=== PATIENT | male | born 1980 | race Caucasian/White ===

== ENCOUNTER 2017-08-27 08:08 | Emergency (ER) | payer OTHER ==
[~2017-08-27] VITALS: Ht 177.8 cm; Wt 129.5 kg
[2017-08-27] MEDS ORDERED: FLEXERIL10 MG PO ×2 (10:38→11:37)
[2017-08-27] MEDS ORDERED: TYLENOL WITH C1 EACH PO ×2 (10:38→11:37)
[2017-08-27 11:47] VITALS: BP 127/82
== END 2017-08-27 11:48 | disposition left against medical advice (07) ==
LOC: EME 08:08
DX: M54.2 Cervicalgia (principal); M54.12 Radiculopathy, cervical region; M79.1 Myalgia; I10 Essential (primary) hypertension; Z87.891 Personal history of nicotine dependence
CPT/HCPCS: 99281; 99284; J1885